=== PATIENT | female | born 1975 | race Caucasian/White ===

== ENCOUNTER → 2018-08-28 | Outpatient (CLI) | payer OTHER | LOC: FIMAGING 12:02 | PROVIDERS: ATTEND Family Medicine | DX: Z12.31 Encounter for screening mammogram for malignant neoplasm of breast (principal) ==

== ENCOUNTER → 2018-10-16 | Outpatient (CLI) | payer OTHER | LOC: FIMAGING 15:48 | PROVIDERS: ATTEND Specialist | DX: N20.0 Calculus of kidney (principal) ==

== ENCOUNTER 2018-10-24 11:12 | Day surgery (SDC) | payer OTHER ==
[2018-10-24] MEDS ORDERED: levOFLOXACIN 500 MG/DEXTROSE 100 ML IV ONE (11:31)
[2018-10-24] MEDS ORDERED: LR 1,000 ML IV ONE (11:34)
[2018-10-24 12:06] LABS: PLATELET COUNT 361 10^3/uL (150-400)
[2018-10-24] MEDS ORDERED: MIDAZOLAM 2 MG/2 ML VIAL IVP ONE (12:35)
--- NOTE | 2018-10-24 12:35 | PDANEPAE ---
ANE History of Present Illness left ureteral stone ANE Past Medical History - Cardiovascular History Hx Hypertension: No Hx Arrhythmias: No Hx Chest Pain: No Hx Coronary Artery / Peripheral Vascular Disease: No Hx CHF / Valvular Disease: No Hx Palpitations: No Cardiovascular History Comment: hx of mumur. 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 - Neurologic History Hx Cerebrovascular Accident: No Hx Seizures: No Hx Dementia: No - Endocrine History Hx Diabetes: No Hypothyroid: No Hyperthyroid: No Obesity: yes, severe - Renal History Hx Renal Disorders: No Renal History Comment: recurrent kidney stones - Liver History Hx Hepatic Disorders: No - Neurological & Psychiatric Hx Hx Neurological and Psychiatric Disorders: No - Cancer History Hx Cancer: No - Congenital Disorder History Hx Congenital Disorders: Yes Congenital History Comment: kidney stone - GI History Hx Gastrointestinal Disorders: No - Other Health History Other Health History: anemic. heavy mentruation with xarelto - Chronic Pain History Chronic Pain: No - Surgical History Prior Surgeries: lithotripse 2016. ruptured tendon repair 2014 ANE Review of Systems Review of systems is: negative Review of Systems: - Exercise capacity METS (RN): 4 METS ANE Patient History - Allergies Allergies/Adverse Reactions: No Known Allergies Allergy (Verified 10/23/18 16:10) - Home Medications Home medications: home medication list seen and reviewed Home Medications: Acetaminophen [Tylenol ES 500 mg (*)] 02/10/15 [Last Taken 10/24/18 09:00] Herbals/Supplements -Info Only 02/10/15 [Last Taken 3 Days Ago ~10/21/18] Ibuprofen [Motrin (*)] 02/10/15 [Last Taken 10/22/18] Multivitamins [Multivitamin (*)] 02/10/15 [Last Taken 10/22/18] Rivaroxaban [Xarelto 15mg (*)] 10/23/18 [Last Taken 10/21/18] - NPO status NPO Since - Liquids (Date): 10/24/18 NPO Since - Liquids (Time): 09:00 NPO Since - Solids (Date): 10/23/18 NPO Since - Solids (Time): 20:00 - Anes Hx Anes Hx: no prior problems - Smoking Hx Smoking Status: Never smoked - Family Anes Hx Family Hx Anesthesia Complications: none ANE Labs/Vital Signs - Labs Result Diagrams: 10/24/18 11:50 - Vital Signs Blood Pressure: 148/99 Heart Rate: 82 Respiratory Rate: 16 O2 Sat (%): 93 Height: 171.45 cm Weight: 124.738 kg ANE Physical Exam - Airway Neck exam: FROM Mallampati Score: Class 1 Mouth exam: normal dental/mouth exam - Pulmonary Pulmonary: no respiratory distress - Cardiovascular Cardiovascular: regular rate and rhythym - ASA Status ASA Status: III ANE Anesthesia Plan Anesthesia Plan: general endotracheal anesthesia
[2018-10-24] MEDS ORDERED: PROPOFOL 200 MG/20 ML VIAL ONE ×4 (12:38→14:12)
[2018-10-24] MEDS ORDERED: fentaNYL 100 MCG/2 ML INJ ONE ×4 (12:41→14:57)
[2018-10-24] MEDS ORDERED: LIDOCAINE 2% JELLY 20 ML (UROJECT) ONE (12:42)
[2018-10-24] MEDS ORDERED: IOPAMIDOL (ISOVUE-M 300) 15 ML VIAL ONE (12:43)
[2018-10-24] MEDS ORDERED: DEXAMETHASONE 4 MG/ML VIAL ONE (12:46)
[2018-10-24] MEDS ORDERED: ONDANSETRON 4 MG/2 ML VIAL ONE ×2 (12:46→14:53)
[2018-10-24] MEDS ORDERED: LIDOCAINE 2% 2 ML INJ ONE (12:46)
[2018-10-24] MEDS ORDERED: KETOROLAC 30 MG/1 ML SDV ONE (12:46)
[2018-10-24] MEDS ORDERED: ONDANSETRON 4 MG/2 ML VIAL IVP PRN (13:40)
[2018-10-24] MEDS ORDERED: HYDROmorphONE/DILAUDID 2 MG/ML INJ IVP PRN (13:40)
[2018-10-24] MEDS ORDERED: ACETAMINOPHEN 500 MG TAB PO PRN (13:40)
[2018-10-24] MEDS ORDERED: ALBUTEROL 3 ML DEYVIAL IH PRN (13:40)
[2018-10-24] MEDS ORDERED: HYDROCODONE/APAP 5/325 TAB PO PRN (13:40)
[2018-10-24] MEDS ORDERED: PROMETHAZINE HCL 25 MG/ML INJ IVP PRN (13:40)
[2018-10-24] MEDS ORDERED: METOCLOPRAMIDE 10 MG/2 ML VIAL IVP PRN (13:40)
[2018-10-24] MEDS ORDERED: LR 500 ML IV PRN (13:40)
[2018-10-24] MEDS ORDERED: oxyCODONE IR 5 MG TAB PO PRN (13:40)
[2018-10-24] MEDS ORDERED: NALOXONE HCL 0.4 MG/ML INJ IVP PRN (13:40)
--- NOTE | 2018-10-24 13:40 | POSTANESTH ---
Post Anesthetic Evaluation Cardiovascular Status: Normal, Stable Respiratory Status: Normal, Stable Level of Consciousness/Mental Status: Can Participate in Eval, Mildly Sleepy, Arousable Pain Control: Adequate, Prn Tx Ordered Nausea/Vomiting Control: Adequate, Prn Tx Ordered Complications Possibly Related to Anesthesia: None Noted
--- NOTE | 2018-10-24 14:44 | PDHPUP ---
History & Physical Update H&P update statement: This history and physical update is based on an assessment of the patient which was completed after admission or registration (within 24 hours), but prior to the surgery/procedure. H&P update: no change in patient's condition since H&P completed
--- NOTE | 2018-10-24 14:46 | POSTOPPROG ---
Post Op Note Date of Operation: 10/24/18 Surgeon: Ivelisse Molina (# [id number]) Anesthesia: LMA Pre-op Diagnosis: Large left renal calculus Post-op Diagnosis: Large left renal calculus Procedure: Cysto, RGP, Left ureteroscopy w/ laser litho, stent placement Findings: See op note Inf/Abcess present in the surg proc area at time of surgery?: No EBL: Minimal Complications: None Drains: Other (4.7 Fr. multilength left ureteral stent) Specimen(s): None
[2018-10-24] MEDS: fentaNYL 100 MCG/2 ML INJ IVP PRN ×2 (14:57→15:19)
[2018-10-24] MEDS ORDERED: HYDROCODONE/APAP 5/325 TAB ONE (15:16)
[2018-10-24] MEDS ORDERED: PHENAZOPYRIDINE HCL 200 MG TAB ONE (15:17)
[2018-10-24] MEDS ORDERED: PHENAZOPYRIDINE HCL 200 MG TAB PO ONE (15:30)
[2018-10-24] MEDS ORDERED: HYDROmorphONE/DILAUDID 2 MG/ML INJ ONE (15:38)
[2018-10-24] MEDS ORDERED: METOCLOPRAMIDE 10 MG/2 ML VIAL ONE (15:41)
--- NOTE | 2018-10-24 16:22 | GOP ---
[f rep st] OPERATIVE REPORT DATE OF OPERATION: 10/24/2018 SURGEON: Ivelisse Molina MD ANESTHESIA: Laryngeal mask. PREOPERATIVE DIAGNOSIS: Symptomatic large left renal calculus. POSTOPERATIVE DIAGNOSIS: Symptomatic large left renal calculus. PROCEDURE PERFORMED: 1. Cystourethroscopy, left retrograde pyelography. 2. Left ureterorenoscopy with holmium laser calculus lithotripsy. 3. Left ureteral stent placement (4.7-Bulgarian multi length). FINDINGS: Large left renal calculus. SPECIMENS: None. ESTIMATED BLOOD LOSS: Minimal. INDICATIONS: This woman presented to my office recently with a large symptomatic left renal calculus . Management options were reviewed. She has opted to proceed with the scheduled operation. The ind ications for the procedures as well as potential risks and complications were discussed with the anselmo ent preoperatively. She appeared to understand, her questions were answered, and she wished to proce ed. Written informed surgical consent was thereafter obtained. DESCRIPTION OF PROCEDURE: The patient was brought to the operating room and administered laryngeal m ask anesthesia. She was carefully placed in the dorsal lithotomy position on the cystoscopic table. The genital area was sterilely prepped with Betadine scrub and paint, and then draped in usual steri le fashion. Cystoscopy was performed with a 30-degree lens through a 22-Bulgarian sheath. Urethra and bladder were unremarkable. Ureteral orifices were normal in regard to shape and position along the t rigone. A 5-Bulgarian open-ended ureteral catheter was used to perform retrograde pyelography on the le ft side. On airline radio operator fluoroscopic imaging, the calculus could not be easily seen. The nonvisualization of the stone is likely due to the patient's large size. Injection of contrast through the ureteral catheter opacified the ureter and renal collecting system. There was a sizable filling defect in the renal pelvis, consistent with the location of the calculus seen on preoperative imaging. There was minimal hydronephrosis of the calices proximal to the calculus. I then advanced a 0.035-inch hydroph ilic guidewire through the ureteral catheter into the renal collecting system as noted fluoroscopical ly. The ureteral catheter was withdrawn. A 10 cm balloon was used to dilate the entire length of th e ureter with 2 separate inflations and deflations by maintaining a pressure of 16 atmospheres for ab out 4 minutes on each occasion. The balloon dilator was then removed while keeping the existing guid ewire in place. The 5-Bulgarian open-ended ureteral catheter was then reinserted alongside the existing guidewire, followed by advancing a 0.035-inch Amplatz hydrophilic guidewire that was passed into the renal collecting system as noted fluoroscopically. The ureteral catheter and cystoscope were then r emoved, thereby keeping both guidewires in place. Under fluoroscopic guidance, a 35 cm hydrophilic u reteral access sheath was advanced over the Amplatz guidewire and positioned proximally at the ureter opelvic junction. The inner obturator and Amplatz wire were removed while keeping the outer portion of the access sheath and secondary guidewire in place. Flexible ureterorenoscopy was then performed through the ureteral access sheath. There was some blood clot present within the renal pelvis that i nitially obscured visualization. I was able to somewhat flush these clots free from the kidney and w as then able to easily identify the large calculus. It was probably at least 15 mm in diameter, alth ough estimation of size is difficult as result of the fluoroscopic magnification of the instrumentati on. A 200 micron holmium laser fiber was brought onto the field and utilized to fragment the calculu s into as small pieces as possible. This created a quarry of calculi within the renal collecting sys tem. it Ultimately became somewhat difficult to determine whether there were any sizeable remaining stone fragments. I flushed out as many of the stone fragments from the renal collecting system with saline irrigation through the ureteroscope as possible. At this point, I decided to terminate the li thotripsy portion of the procedure. The ureteroscope and ureteral access sheath were removed in tand em while keeping the guidewire in place. Upon retrograde examination, there was minimal trauma to th e ureter as a result of the operative process. Once the ureteroscope and ureteral access sheath had been removed, the cystoscope was back-loaded over the guidewire, followed by the insertion of a 4.7-F rench multi length hydrophilic ureteral stent. The proper placement of the ureteral stent was confir med fluoroscopically in the kidney and cystoscopically in the bladder. The existing guidewire was th en removed. The urine return from the bladder was removed and was clear. The instruments were remov ed. 20 cc of 2% lidocaine was injected transurethrally for postoperative analgesic purposes. The pa tient was awakened, transferred to her bed, and then taken to the recovery room. She tolerated the p rocedure well overall. COMPLICATIONS: None. DISPOSITION: She was transferred to the recovery room in stable condition. She will be discharged w ith instructions to return to the office in approximately 10 days with a KUB at that time. She will in all likelihood require a second-look ureteroscopic procedure to ensure sufficient treatment of her calculus and any remaining fragments. /[id number]/MODL
[2018-10-24 18:31] VITALS: BP 126/86
== END 2018-10-24 17:31 | disposition home or self-care (01) ==
LOC: FSGY 11:12
PROVIDERS: ATTEND Specialist
PROC: 0TF48ZZ Fragmentation in Left Kidney Pelvis, Via Natural or Artificial Opening Endoscopic (ICD-10-PCS; principal; 2018-10-24 12:30)
PROC: BT1F1ZZ Fluoroscopy of Left Kidney, Ureter and Bladder using Low Osmolar Contrast (ICD-10-PCS; principal; 2018-10-24 12:30)
PROC: 0T778DZ Dilation of Left Ureter with Intraluminal Device, Via Natural or Artificial Opening Endoscopic (ICD-10-PCS; principal; 2018-10-24 12:30)
DX: N20.0 Calculus of kidney (principal); Z79.01 Long term (current) use of anticoagulants; Z87.442 Personal history of urinary calculi; Z86.711 Personal history of pulmonary embolism
CPT/HCPCS: 52356; C1726; C1758; C1769; C1894; C2625; J1100; J1170; J1885; J1956; J2250; J2405; J2704; J2765; J3010; Q9967

== ENCOUNTER → 2018-11-05 | Outpatient (CLI) | payer OTHER | LOC: FIMAGING 07:57 | PROVIDERS: ATTEND Specialist | DX: N20.0 Calculus of kidney (principal); Z96.0 Presence of urogenital implants ==

== ENCOUNTER 2018-11-11 11:12 | Day surgery (SDC) | payer OTHER ==
[2018-11-11] MEDS ORDERED: LR 1,000 ML IV ONE (11:40)
[2018-11-11] MEDS ORDERED: LIDOCAINE 2% JELLY 20 ML (UROJECT) ONE (11:55)
[2018-11-11] MEDS ORDERED: IOPAMIDOL (ISOVUE-M 300) 15 ML VIAL ONE (11:56)
[2018-11-11] MEDS ORDERED: MIDAZOLAM 2 MG/2 ML VIAL IVP ONE (12:29)
--- NOTE | 2018-11-11 12:32 | PDANEPAE ---
ANE Past Medical History - Cardiovascular History Hx Hypertension: No Hx Arrhythmias: No Hx Chest Pain: No Hx Coronary Artery / Peripheral Vascular Disease: No Hx CHF / Valvular Disease: No Hx Palpitations: No Cardiovascular History Comment: hx of mumur. 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 heavy mentruation with xarelto. wears glasses/ contacts - Chronic Pain History Chronic Pain: No - Surgical History Prior Surgeries: 10/24/18 left ureteroscopy, laser lithotripsy with stent placement with melouk. 08/22/12 right distal ureter stone removal with laser, stent placement and ureteroscopy with melouk. ruptured tendon repair 2013 ANE Review of Systems Review of Systems: - Exercise capacity METS (RN): 4 METS ANE Patient History - Allergies Allergies/Adverse Reactions: No Known Allergies Allergy (Verified 11/08/18 11:31) - Home Medications Home medications: home medication list seen and reviewed Home Medications: Acetaminophen [Tylenol ES 500 mg (*)] 02/10/15 [Last Taken 11/11/18 05:00] Herbals/Supplements -Info Only 02/10/15 [Last Taken 11/08/18] Ibuprofen [Motrin (*)] 02/10/15 [Last Taken 11/08/18] Multivitamins [Multivitamin (*)] 02/10/15 [Last Taken 11/08/18] Rivaroxaban [Xarelto 15mg (*)] 10/23/18 [Last Taken 10/21/18] Flomax 11/08/18 [Last Taken 11/10/18] Urobell 11/08/18 [Last Taken 11/10/18] - NPO status NPO Status: no food or drink >8 hours NPO Since - Liquids (Date): 11/11/18 NPO Since - Liquids (Time): 07:30 NPO Since - Solids (Date): 11/10/18 NPO Since - Solids (Time): 18:00 - Anes Hx Anes Hx: post operative nausea - Smoking Hx Smoking Status: Never smoked - Family Anes Hx Family Hx Anesthesia Complications: none ANE Labs/Vital Signs - Vital Signs Blood Pressure: 158/109 Heart Rate: 95 Respiratory Rate: 16 O2 Sat (%): 93 Height: 171.45 cm Weight: 124.738 kg ANE Physical Exam - Airway Neck exam: FROM Mallampati Score: Class 2 Mouth exam: normal dental/mouth exam - Pulmonary Pulmonary: no respiratory distress, no rales or rhonchi, clear to auscultation - Cardiovascular Cardiovascular: regular rate and rhythym, no murmur, rub, or gallop - ASA Status ASA Status: III ANE Anesthesia Plan Anesthesia Plan: general endotracheal anesthesia
[2018-11-11] MEDS ORDERED: LR 500 ML IV PRN (12:33)
[2018-11-11] MEDS ORDERED: ACETAMINOPHEN 500 MG TAB PO PRN (12:33)
[2018-11-11] MEDS ORDERED: NALOXONE HCL 0.4 MG/ML INJ IVP PRN (12:33)
[2018-11-11] MEDS ORDERED: HYDROCODONE/APAP 5/325 TAB PO PRN (12:33)
[2018-11-11] MEDS ORDERED: fentaNYL 100 MCG/2 ML INJ IVP PRN (12:33)
[2018-11-11] MEDS ORDERED: PROMETHAZINE HCL 25 MG/ML INJ IVP PRN (12:33)
[2018-11-11] MEDS ORDERED: LIDOCAINE 2% 2 ML INJ ONE (12:40)
[2018-11-11] MEDS ORDERED: PROPOFOL 200 MG/20 ML VIAL ONE (12:40)
[2018-11-11] MEDS ORDERED: fentaNYL 100 MCG/2 ML INJ ONE (12:40)
[2018-11-11] MEDS ORDERED: DEXAMETHASONE 4 MG/ML VIAL ONE ×2 (12:41)
[2018-11-11] MEDS ORDERED: KETOROLAC 30 MG/1 ML SDV ONE (12:42)
[2018-11-11] MEDS ORDERED: ONDANSETRON 4 MG/2 ML VIAL ONE ×3 (12:42→14:01)
[2018-11-11] MEDS ORDERED: SUCCINYLCHOLINE CHLORIDE 200 MG/10 ML SYR IVP ONE (13:05)
--- NOTE | 2018-11-11 13:38 | POSTOPPROG ---
Post Op Note Date of Operation: 11/11/18 Surgeon: Ivelisse Molina (# [id number]) Anesthesia: LMA Pre-op Diagnosis: Left nephrolithiasis, s/p ureteral stent placement Post-op Diagnosis: Left nephrolithiasis, s/p ureteral stent placement Procedure: Left ureteroscopy w/ laser litho, RGP, stent replacement Findings: See op note Inf/Abcess present in the surg proc area at time of surgery?: No EBL: Minimal Complications: None Drains: Other (4.7 Fr. multi-length left ureteral stent) Specimen(s): None
--- NOTE | 2018-11-11 13:42 | POSTANESTH ---
Post Anesthetic Evaluation Cardiovascular Status: Normal, Stable, Similar to Pre-Op Cond Respiratory Status: Normal, Stable, Similar to Pre-op Cond. Level of Consciousness/Mental Status: Can Participate in Eval, Mildly Sleepy, Arousable Pain Control: Adequate, Prn Tx Ordered Nausea/Vomiting Control: Adequate, Prn Tx Ordered Complications Possibly Related to Anesthesia: None Noted
[2018-11-11] MEDS: ONDANSETRON 4 MG/2 ML VIAL IVP PRN ×2 (13:49→14:02)
[2018-11-11] MEDS ORDERED: PHENAZOPYRIDINE HCL 200 MG TAB PO ONE (14:00)
--- NOTE | 2018-11-11 14:31 | POSTANESTH ---
Post Anesthetic Evaluation Cardiovascular Status: Normal, Stable, Similar to Pre-Op Cond Respiratory Status: Normal, Stable, Similar to Pre-op Cond. Level of Consciousness/Mental Status: Can Participate in Eval, Alert and Oriented Pain Control: Inadeq, Add Tx Required Nausea/Vomiting Control: Adequate, Prn Tx Ordered Complications Possibly Related to Anesthesia: Other, See Comments (Pt. c/o bilat jaw pain in PACU. BP stable 120s/80s, NSR. 12-lead ECG shows only nospecific changes (inferior T abnormalities, though new since 2014). No dyspnea or diaphoresis. Nausea improved with time and Zofran to the point that she can eat at 1430. Discussed w/hospitalist, who will see her. Also ordered two troponins. My suspicion that this is a cardiac symptom is low.)
[2018-11-11 15:14] VITALS: BP 133/83
--- NOTE | 2018-11-11 15:42 | PDHOSCONS ---
<Amie Navarro - Last Filed: 11/11/18 17:27> History and Physical - Chief Complaint Jaw pain - History of Present Illness Hospital medicine was asked to consult by anesthesiologist, Dr. Varun Corral, for jaw pain and EKG changes when compared to 2015. 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 She has no cardiac medical hx, family hx significant for hypertension and hyperlipidemia. This procedure is familiar to the pt, she usually is d/c'ed afterwards w/ no c/o. She typically awakens from general anesthesia w/ nausea which subsides. Today, she had c/o nausea and bilateral jaw pain w/ the jaw pain being new to her. Upon awakening, it felt like she bit down hard and grinded her teeth. No other symptoms. Non-radiating, no chest pain, palpitations, SOB, back pain, vomiting. An EKG was obtained, it revealed T-wave abnormalities similar to her 2015 EKG. Troponin was <0.012, negative. Upon my evaluation w/ the pt, nausea has since resolved and her jaw pain reduced significantly to a mild dull ache. Pressure was applied to her TMJ and she reports tenderness. When asked to open her mouth w/ pressure still applied, she reports tenderness. No difficulty opening her mouth, swallowing. I do not believe this is cardiac-related and most likely musculoskeletal. I recommended to the pt to f/u to the ED or call 911 should she become symptomatic w/ chest pain, headache, SOB, palpitations or any worsening conditions. Lungs: CTAB, Cardiac: S1, S2 heard, no murmurs, gallops or rubs. BP: 133/83, HR: 66, 94% oxygen RA. History Information - Allergies/Home Medication List Allergies/Adverse Reactions: No Known Allergies Allergy (Verified 11/08/18 11:31) Home Medications: Acetaminophen [Tylenol ES 500 mg (*)] 02/10/15 [Last Taken 11/11/18 05:00] Herbals/Supplements -Info Only 02/10/15 [Last Taken 11/08/18] Ibuprofen [Motrin (*)] 02/10/15 [Last Taken 11/08/18] Multivitamins [Multivitamin (*)] 02/10/15 [Last Taken 11/08/18] Rivaroxaban [Xarelto 15mg (*)] 10/23/18 [Last Taken 10/21/18] Flomax 11/08/18 [Last Taken 11/10/18] Urobell 11/08/18 [Last Taken 11/10/18] I have personally reviewed and updated: family history, medical history, social history, surgical history - Social History Smoking Status: Never smoked Review of Systems Review of Systems: ROS: 10pt was reviewed & negative except for what was stated in HPI & below Physical Exam Physical Exam: Temp Pulse Resp BP Pulse Ox 36.3 C 95 19 133/83 H 96 11/11/18 14:26 11/11/18 12:32 11/11/18 14:46 11/11/18 15:08 11/11/18 15:08 O2 (L/minute) 4 Lab Data & Imaging Review Troponin I < 0.012 ng/mL (0.000-0.034) 11/11/18 14:35 <Maximo Kelly - Last Filed: 11/11/18 20:18> History and Physical - History of Present Illness Review of Systems Review of Systems: Physical Exam Physical Exam: Temp Pulse Resp BP Pulse Ox 36.3 C 95 19 133/83 H 94 11/11/18 14:26 11/11/18 12:32 11/11/18 14:46 11/11/18 15:08 11/11/18 15:20 O2 (L/minute) 4 Lab Data & Imaging Review Troponin I < 0.012 ng/mL (0.000-0.034) 11/11/18 14:35 Assessment & Plan Assessment: Patient seen and evaluated independently and care plan reviewed with AMALIA Navarro, agree with her assessment and plan as outlined above. Please see separate documentation for further details
--- NOTE | 2018-11-11 15:54 | GOP ---
[f rep st] OPERATIVE REPORT DATE OF OPERATION: 11/11/2018 SURGEON: Ivelisse Molina MD ANESTHESIA: Laryngeal mask. PREOPERATIVE DIAGNOSIS: Left nephrolithiasis, status post left ureteroscopy and ureteral stent placement. POSTOPERATIVE DIAGNOSIS: Left nephrolithiasis, status post left ureteroscopy and ureteral stent placement. PROCEDURE PERFORMED: 1. Cystourethroscopy, left ureteral stent removal. 2. Left retrograde pyelography. 3. Left ureterorenoscopy with holmium laser calculus lithotripsy. 4. Left ureteral stent replacement (4.7-Cameroonian multilength). FINDINGS: Multiple small left renal calculus fragments, addressed as mentioned in the body of the operative report. SPECIMENS: None. ESTIMATED BLOOD LOSS: Minimal. INDICATIONS: This woman recently underwent left ureterorenoscopy for a large renal calculus. She presents for a second-look ureteroscopy and management of residual calculus fragments. The indications for the procedures as well as potential risks and complications were discussed with the patient preoperatively. She appeared to understand, her questions were answered, and she wished to proceed. Written informed surgical consent was thereafter obtained. DESCRIPTION OF PROCEDURE: The patient was brought to the operating room and administered the laryngeal mask anesthesia. She was carefully placed in the dorsal lithotomy position on the cystoscopic table. The genital area was sterilely prepped with Betadine scrub and paint, and then draped in usual sterile fashion. Cystoscopy was performed with a 30-degree lens through a 22- Cameroonian sheath. Urethra and bladder were notable only for an existing left ureteral stent that was exiting the ureteral orifice. The remainder of the bladder was unremarkable. Spot fluoroscopic imaging at this point revealed stent to be in proper position with no other obvious abnormalities. However, because of the patient's large size, fluoroscopic visualization radiographically was somewhat limited. I then used flexible grasping forceps to remove the distal tip of the existing indwelling ureteral stent through the urethral meatus. I then attempted to advance a 0.035-inch hydrophilic guidewire through the lumen of the ureteral stent and into the renal collecting system. However, the proximal aspect of the stent appeared to be occluded and would not allow for this. Therefore, the existing indwelling stent was removed and the 0.035-inch stent advanced through the ureteral orifice and into the renal collecting system as noted fluoroscopically. I then inserted a 5-Cameroonian open-ended ureteral catheter alongside the indwelling ureteral guidewire and performed retrograde pyelography which highlighted the renal collecting system. No abnormalities, other than mild hydronephrosis, were appreciated. Ureter was normal. I advanced a 0.035 inch superstiff Amplatz guidewire through the ureteral catheter and into the renal collecting system as confirmed fluoroscopically. Two guidewires were now in place. The ureteral catheter was removed while keeping both guidewires in place. Under fluoroscopic guidance, a 35 cm hydrophilic ureteral access sheath was advanced over the Amplatz guidewire and positioned proximally at the ureteropelvic junction. The inner obturator to the sheath as well as the Amplatz guidewire were removed while keeping the outer portion of the access sheath and secondary guidewire in place. Flexible ureterorenoscopy was performed through the ureteral access sheath. Upon placement of the scope into the proximal ureter at the level of the UPJ, a small stone fragment was seen. I further advanced the ureteroscope into the kidney. There were multiple stone fragments within a lower pole calyx. A couple of these appeared to be up to approximately 3 to 5 mm in diameter. I decided to fragment these. I used a 200 micron holmium laser fiber to fragment these remaining fragments into as small pieces as possible. I then used normal saline or sterile water to flush these fragments from the lower pole calyx. This was successful. None of the calculus fragments were purposely retrieved through the ureteroscope. I felt that it would be safer to allow these to pass on their own. The remaining calyces were examined. No other significant sized fragments were remaining that needed further lithotripsy. I then backed out the ureteroscope and ureteral access sheath in tandem. The previously noted small fragment that was in the proximal ureter had flushed either into the kidney or down the ureter and into the bladder, but it was no longer seen in the same location. No other calculi were seen within the ureter. Ureteral mucosa was fairly unharmed by the operative procedure. The cystoscope was back- loaded over the existing guidewire, and a 4.7-Cameroonian multi length hydrophilic ureteral stent advanced over the guidewire until it was properly positioned as seen fluoroscopically in the kidney and cystoscopically in the bladder. The bladder was then drained of all return which was relatively clear. The instruments were removed, and 20 cc of 2% lidocaine injected transurethrally for postoperative analgesic purposes. The patient was awakened, extubated, transferred to her bed, then taken to the recovery room. She tolerated the procedure well overall. COMPLICATIONS: None. DISPOSITION: She was transferred to the recovery room in stable condition and will be discharged with instructions to return to the office in approximately 2 weeks for ureteral stent removal. /[id number]/MODL MTDD
--- NOTE | 2018-11-11 20:41 | HOSPPROG ---
Hospitalist Progress Note Assessment/Plan: 43 yo F with PMH of APLAB syndrome and hx of DVT/PE as well as recurrent renal stones here for ureteroscopy and removal of ureteral stent with concerns of post operative jaw pain. # jaw pain: reproducible on exam and seems most c/w TMJ, patient denies other complaints and jaw pain seems to be resolving. No change on ecg, negative trop. Recommend f/u with her PCP, and return for more urgent evaluation if this does not resolve or gets wore or if chest pain develops # DVT/PE: resume xarelto # recurrent nephrolithiasis: sp ureteroscopy, will f/u with urology as planned # APLAB syndrome: with recurrent kidney stones # patient discharged from PACU to f/u with PCP, urology Care plan reviewed with AMALIA Navarro, please see her separate H&P for further details. Objective: Vital Signs Temp Pulse Resp BP Pulse Ox 36.3 C 95 19 133/83 H 94 11/11/18 14:26 11/11/18 12:32 11/11/18 14:46 11/11/18 15:08 11/11/18 15:20 11/10/18 11/11/18 11/12/18 05:59 05:59 05:59 Intake Total 1160 Output Total 0 Balance 1160 ICD10 Worksheet Patient Problems: Problems Problem Status Onset Pulmonary embolism Acute
--- NOTE | 2018-11-15 14:43 | CPEKG ---
Test Reason : OPEN Blood Pressure : / mmHG Vent. Rate : 081 BPM Atrial Rate : 083 BPM P-R Int : 185 ms QRS Dur : 097 ms QT Int : 394 ms P-R-T Axes : 033 076 -14 degrees QTc Int : 458 ms Sinus rhythm STTW abnormalities, inferior and lateral leads suggestive of ischemia Confirmed by Howard Christina ([id number]) on 11/15/2018 2:43:19 PM Referred By: Ivelisse Molina Confirmed By:Howard Christina
== END 2018-11-11 16:00 | disposition home or self-care (01) ==
LOC: FSGY 11:12
PROVIDERS: ATTEND Specialist
PROC: 0TP98DZ Removal of Intraluminal Device from Ureter, Via Natural or Artificial Opening Endoscopic (ICD-10-PCS; principal; 2018-11-11 12:30)
PROC: 0TF48ZZ Fragmentation in Left Kidney Pelvis, Via Natural or Artificial Opening Endoscopic (ICD-10-PCS; principal; 2018-11-11 12:30)
PROC: 0T778DZ Dilation of Left Ureter with Intraluminal Device, Via Natural or Artificial Opening Endoscopic (ICD-10-PCS; principal; 2018-11-11 12:30)
PROC: BT1FYZZ Fluoroscopy of Left Kidney, Ureter and Bladder using Other Contrast (ICD-10-PCS; principal; 2018-11-11 12:30)
DX: N13.2 Hydronephrosis with renal and ureteral calculous obstruction (principal); D68.61 Antiphospholipid syndrome; R68.84 Jaw pain; R11.0 Nausea; Z79.01 Long term (current) use of anticoagulants; Z87.442 Personal history of urinary calculi; Z86.711 Personal history of pulmonary embolism
CPT/HCPCS: 52356; 76000; C1758; C1769; C1894; C2625; J0330; J0696; J1100; J1885; J2250; J2405; J2704; J3010; Q9967

== ENCOUNTER → 2018-11-21 | Outpatient (CLI) | payer OTHER | LOC: FIMAGING 11:19 | PROVIDERS: ATTEND Specialist | DX: Z09 Encounter for follow-up examination after completed treatment for conditions other than malignant neoplasm (principal); Z96.0 Presence of urogenital implants ==

== ENCOUNTER → 2018-12-17 | Outpatient (CLI) | payer OTHER | LOC: FIMAGING 10:11 | PROVIDERS: ATTEND Specialist | DX: N20.0 Calculus of kidney (principal) ==